=== PATIENT | female | born 1990 | race Caucasian/White ===

== ENCOUNTER → 2017-01-16 | Outpatient (CLI) | payer OTHER | LOC: FIMAGING 08:57 | PROVIDERS: ATTEND Obstetrics & Gynecology | DX: Z12.39 Encounter for other screening for malignant neoplasm of breast (principal); N63 Unspecified lump in breast; Z80.3 Family history of malignant neoplasm of breast ==

== ENCOUNTER 2018-11-16 09:19 | Emergency (ER) | payer OTHER ==
--- NOTE | 2018-11-16 10:35 | EDPHY ---
HPI/HX/ROS/PE/MDM Narrative: CHIEF COMPLAINT: Chest discomfort, abdominal discomfort HISTORY OF PRESENT ILLNESS: The patient is a 28 y/o female complaining of epigastric discomfort and burning discomfort extending upper chest to the base of her throat. Discomfort is worse with eating. No nausea or vomiting. Patient states she has not been feeling very well for about a week. Occasional cough. No fever. No changes in her stool. Past history of having an ulcer when she was in college. Has not taken any medications for this discomfort. Denies vomiting, diarrhea, urinary complaints, headache, lightheadedness, or shortness of breath. REVIEW OF SYSTEMS: Aside from elements discussed in the HPI, a comprehensive 10-point review of systems was reviewed and is negative. PAST MEDICAL HISTORY: History of ulcer. SOCIAL HISTORY: Lives in [place], employed. States she and her are trying to get . VITAL SIGNS: Reviewed by me GENERAL: Well-developed, well-nourished, resting comfortably in no respiratory distress. HEENT: Atraumatic. Eyes: No icterus, no injection. Mouth: moist mucous membranes. No erythema or lesions. Neck: supple with no adenopathy. LUNGS: Clear to auscultation bilaterally, no wheezes, rhonchi or rales. No chest wall tenderness. CARDIAC: Regular rate and rhythm, no rubs, murmurs or gallops. ABDOMEN: Soft, mild high epigastric tenderness. No guarding or rebound. Nondistended, bowel sounds normal. BACK: No CVA tenderness. EXTREMITIES: No trauma. No edema. Range of motion is normal throughout. NEURO: Alert and oriented, grossly nonfocal. SKIN: Warm and dry, no rash. PSYCHIATRIC: Normal mentation, no agitation. ED Course: 28-year-old female with high epigastric discomfort, burning discomfort in the midsternal region and pain with swallowing. Patient received a GI cocktail. She received Pepcid by mouth. Labs including lipase were normal. No liver function test abnormalities. Doubt the patient has gallstone disease. Chest x-ray does demonstrate a early left lingular infiltrate. On further discussion with the patient, she denies fever or cough. Denies upper respiratory infection symptoms. Azithromycin 500 mg given in the emergency department as well as a L of fluid. Patient was discharged with instructions regarding azithromycin and also encouraged to follow up with her primary care physician if her symptoms of GERD and presumed reflux do not improved. I do not believe the patient needs any further studies in the emergency department. MDM: After history and physical examination, the differential for patient's complaints of chest discomfort and abdominal discomfort or considered, including but not limited to, gastritis, pancreatitis, esophagitis, costochondritis, bronchitis, pneumonia. - Data Points Imaging Results: Imaging Impressions Chest X-Ray 11/16/18 13:18 Impression: Patchy lingular infiltrate suspicious for early pneumonia. Imaging: I viewed and interpreted images myself Laboratory Results: Laboratory Results 11/16/18 12:09 11/16/18 12:09 11/16/18 11/16/18 11/16/18 13:07 12:09 12:09 WBC RBC Hgb Hct MCV MCH MCHC RDW Plt Count MPV Neut % (Auto) Lymph % (Auto) [place] % (Auto) Eos % (Auto) Baso % (Auto) Nucleat RBC Rel Count Absolute Neuts (auto) Absolute Lymphs (auto) Absolute Monos (auto) Absolute Eos (auto) Absolute Basos (auto) Absolute Nucleated RBC Immature Gran % Immature Gran # Sodium 136 mEq/L mEq/L (135-145) Potassium 4.4 mEq/L mEq/L (3.5-5.2) Chloride 106 mEq/L mEq/L (97-110) Carbon Dioxide 26 mEq/l mEq/l (22-31) Anion Gap 4 mEq/L L mEq/L (6-14) BUN 10 mg/dL mg/dL (7-23) Creatinine 0.7 mg/dL mg/dL (0.6-1.0) Estimated GFR > 60 Glucose 89 mg/dL mg/dL (70-100) Calcium 9.1 mg/dL mg/dL (8.5-10.4) Total Bilirubin 0.3 mg/dL mg/dL (0.1-1.4) Conjugated Bilirubin 0.3 mg/dL mg/dL (0.0-0.5) Unconjugated Bilirubin 0.0 mg/dL mg/dL (0.0-1.1) AST 15 IU/L IU/L (14-46) ALT 25 IU/L IU/L (9-52) Alkaline Phosphatase 65 IU/L IU/L (38-126) Total Protein 5.7 g/dL L g/dL (6.3-8.2) Albumin 2.9 g/dL L g/dL (3.5-5.0) Lipase 43 IU/L IU/L (23-300) Beta HCG, Qual NEGATIVE Urine Color YELLOW Urine Appearance HAZY Urine pH 6.0 (5.0-7.5) Ur Specific [place] 1.021 (1.002-1.030) Urine Protein NEGATIVE (NEGATIVE) Urine Ketones TRACE H (NEGATIVE) Urine Blood NEGATIVE (NEGATIVE) Urine Nitrate NEGATIVE (NEGATIVE) Urine Bilirubin NEGATIVE (NEGATIVE) Urine Urobilinogen 2.0 EU H EU (0.2-1.0) Ur Leukocyte Esterase NEGATIVE (NEGATIVE) Urine RBC NONE SEEN /hpf /hpf (0-3) Urine WBC 1-3 /hpf /hpf (0-3) Ur Epithelial Cells TRACE /lpf /lpf (NONE-1+) Calcium Oxalate Crystal PRESENT /hpf /hpf (NONE-1+) Urine Bacteria TRACE /hpf H /hpf (NONE SEEN) Urine Mucus TRACE /lpf /lpf (NONE-1+) Urine Glucose NEGATIVE (NEGATIVE) 11/16/18 12:09 WBC 5.26 10^3/uL 10^3/uL (3.80-9.50) RBC 3.60 10^6/uL L 10^6/uL (4.18-5.33) Hgb 10.9 g/dL L g/dL (12.6-16.3) Hct 33.1 % L % (38.0-47.0) MCV 91.9 fL fL (81.5-99.8) MCH 30.3 pg pg (27.9-34.1) MCHC 32.9 g/dL g/dL (32.4-36.7) RDW 12.5 % % (11.5-15.2) Plt Count 436 10^3/uL H 10^3/uL (150-400) MPV 9.4 fL fL (8.7-11.7) Neut % (Auto) 62.3 % % (39.3-74.2) Lymph % (Auto) 21.1 % % (15.0-45.0) [place] % (Auto) 11.2 % % (4.5-13.0) Eos % (Auto) 4.8 % % (0.6-7.6) Baso % (Auto) 0.4 % % (0.3-1.7) Nucleat RBC Rel Count 0.0 % % (0.0-0.2) Absolute Neuts (auto) 3.28 10^3/uL 10^3/uL (1.70-6.50) Absolute Lymphs (auto) 1.11 10^3/uL 10^3/uL (1.00-3.00) Absolute Monos (auto) 0.59 10^3/uL 10^3/uL (0.30-0.80) Absolute Eos (auto) 0.25 10^3/uL 10^3/uL (0.03-0.40) Absolute Basos (auto) 0.02 10^3/uL 10^3/uL (0.02-0.10) Absolute Nucleated RBC 0.00 10^3/uL 10^3/uL (0-0.01) Immature Gran % 0.2 % % (0.0-1.1) Immature Gran # 0.01 10^3/uL 10^3/uL (0.00-0.10) Sodium Potassium Chloride Carbon Dioxide Anion Gap BUN Creatinine Estimated GFR Glucose Calcium Total Bilirubin Conjugated Bilirubin Unconjugated Bilirubin AST ALT Alkaline Phosphatase Total Protein Albumin Lipase Beta HCG, Qual Urine Color Urine Appearance Urine pH Ur Specific [place] Urine Protein Urine Ketones Urine Blood Urine Nitrate Urine Bilirubin Urine Urobilinogen Ur Leukocyte Esterase Urine RBC Urine WBC Ur Epithelial Cells Calcium Oxalate Crystal Urine Bacteria Urine Mucus Urine Glucose Medications Given: Discontinued Medications Al Hydroxide/Mg Hydroxide (Maalox Susp) 30 ml PO ONCE ONE Stop: 11/16/18 11:17 Last Admin: 11/16/18 11:29 Dose: 30 ml Azithromycin (Zithromax) 500 mg PO EDNOW ONE PRN Reason: Protocol Stop: 11/16/18 13:52 Last Admin: 11/16/18 14:22 Dose: 500 mg Famotidine (Pepcid) 20 mg PO EDNOW ONE Stop: 11/16/18 11:17 Last Admin: 11/16/18 11:29 Dose: 20 mg Hyoscyamine Sulfate (Levsin, Hyomax-Sl) 0.25 mg PO ONCE ONE Stop: 11/16/18 11:17 Last Admin: 11/16/18 11:29 Dose: 0.25 mg Sodium Chloride (Ns) 1,000 mls @ 0 mls/hr IV ONCE ONE; Wide Open PRN Reason: Protocol Stop: 11/16/18 13:30 Last Admin: 11/16/18 14:21 Dose: 1,000 mls Sodium Chloride (Ns) 1,000 mls @ 0 mls/hr IV ONCE ONE; Wide Open PRN Reason: Protocol Stop: 11/16/18 13:57 Last Admin: 11/16/18 14:33 Dose: Not Given Lidocaine (Lidocaine 2% Viscous) 15 ml PO ONCE ONE Stop: 11/16/18 11:17 Last Admin: 11/16/18 11:29 Dose: 15 ml General Time Seen by Provider: 11/16/18 10:22 Initial Vital Signs: Initial Vital Signs Temperature (C) 36.9 C 11/16/18 09:26 Heart Rate 101 H 11/16/18 09:26 Respiratory Rate 16 11/16/18 09:26 Blood Pressure 115/74 11/16/18 09:26 O2 Sat (%) 98 11/16/18 09:26 O2 Delivery Mode Room Air Allergies/Adverse Reactions: No Known Allergies Allergy (Unverified 11/16/18 09:26) Home Medications: Medication Instructions Recorded Azithromycin [Zithromax] 250 mg PO DAILY #4 tab 11/16/18 Azithromycin [Zithromax] 250 mg PO DAILY #4 tab 11/16/18 Departure - Departure Disposition: Home, Routine, Self-Care Clinical Impression: Presumed esophagitis Abdominal pain Qualifiers: Abdominal location: epigastric Qualified Code(s): R10.13 - Epigastric pain Left lower lobe pneumonia Qualifiers: Pneumonia type: due to unspecified organism Qualified Code(s): J18.1 - Lobar pneumonia, unspecified organism Condition: Fair Instructions: Diet for Stomach Ulcers and Gastritis (ED), Gastroesophageal Reflux Disease (ED) Additional Instructions: Please begin taking a 2 week course of omeprazole. This is available over-the- counter. A chest x-ray is concerning for possible pneumonia in the left side. Please take the azithromycin as directed. 1st dose was given in the emergency department. Been given referral to primary care physician. Please follow up as soon as possible. Return to the emergency department or seek care urgently if your symptoms are not improving. Please follow up with cyber analyst as directed. Referrals: Chio King MD [Medical Doctor] - As per Instructions Prescriptions: Azithromycin [Zithromax] 250 mg PO DAILY #4 tab Azithromycin [Zithromax] 250 mg PO DAILY #4 tab
[2018-11-16] MEDS ORDERED: MAG HYDROX/AL HYDROX/SIMETH 30 ML UDCUP PO ONE (11:16)
[2018-11-16] MEDS ORDERED: HYOSCYAMINE SULFATE 0.125 MG TAB PO ONE (11:16)
[2018-11-16] MEDS ORDERED: FAMOTIDINE 20 MG TAB PO ONE (11:16)
[2018-11-16] MEDS ORDERED: LIDOCAINE 2% VISCOUS 15 ML UDCUP PO ONE (11:16)
[2018-11-16 12:26] LABS: PLATELET COUNT 436 10^3/uL (150-400)
[2018-11-16] MEDS ORDERED: NS 1,000 ML IV ONE (13:29)
[2018-11-16] MEDS ORDERED: AZITHROMYCIN 250 MG TAB PO ONE (13:51)
[2018-11-16] MEDS: NS 1,000 ML IV ONE ×2 (14:22→14:33)
[2018-11-16 15:01] VITALS: BP 98/68
== END 2018-11-16 15:16 | disposition home or self-care (01) ==
DX: J18.1 Lobar pneumonia, unspecified organism (principal); K20.9 Esophagitis, unspecified; R10.13 Epigastric pain; E86.9 Volume depletion, unspecified

== ENCOUNTER → 2018-12-29 | Outpatient (CLI) | payer OTHER | LOC: FIMAGING 15:43 | PROVIDERS: ATTEND Internal Medicine | DX: Z09 Encounter for follow-up examination after completed treatment for conditions other than malignant neoplasm (principal); J18.9 Pneumonia, unspecified organism; Z53.8 Procedure and treatment not carried out for other reasons ==